=== PATIENT | female | born 1960 | race Caucasian/White ===

== ENCOUNTER → 2016-09-15 | Outpatient (CLI) | payer OTHER ==
[2016-09-15 07:51] LABS: ALBUMIN 3.7 gm/dl (3.1-4.5); ALKALINE PHOSPHATASE 163 U/L (45-117); BILIRUBIN, TOTAL 0.5 mg/dl (0.2-1.0); BUN 20 mg/dl (7-24); CARBON DIOXIDE 29 mmol/L (21-32); CHLORIDE 105 mmol/L (98-107); CHOLESTEROL 201 mg/dL (<200); EST GLOM FILT AFRICAN AMERICAN > 60 ml/min; GLUCOSE 88 mg/dL (65-99); HDL CHOLESTEROL 89 mg/dl (40-60); LDL CHOLESTEROL 101 mg/dL (9-159); POTASSIUM 4.3 mmol/L (3.5-5.1); SGOT/AST 60 IU/L (3-35); SGPT/ALT 108 U/L (12-78); SODIUM 141 mmol/L (136-145); TOTAL PROTEIN 7.6 gm/dL (6.4-8.2); TRIGLYCERIDES 57 mg/dl (<150); VLDL CHOLESTEROL 11 mg/dL (6-40)
== END | disposition home or self-care (01) ==
LOC: LAB 06:50
PROVIDERS: Family Medicine
DX: E78.00 Pure hypercholesterolemia, unspecified (principal); J32.9 Chronic sinusitis, unspecified

== ENCOUNTER → 2016-09-20 | Outpatient (CLI) | payer OTHER ==
[2016-09-21 08:08] LABS: HEPATITIS C VIRUS ANTIBODY <0.1 s/co (0.0-0.9)
== END | disposition home or self-care (01) ==
LOC: LAB 06:58
PROVIDERS: Family Medicine
DX: R79.89 Other specified abnormal findings of blood chemistry (principal); R74.8 Abnormal levels of other serum enzymes

== ENCOUNTER → 2016-10-04 | Outpatient (CLI) | payer OTHER | END | disposition home or self-care (01) | LOC: US 07:06 | DX: K76.89 Other specified diseases of liver (principal); R94.5 Abnormal results of liver function studies ==

== ENCOUNTER → 2016-11-18 | Day surgery (SDC) | payer OTHER ==
[~2016-11-18] VITALS: Ht 157.4 cm; Wt 53.5 kg
--- NOTE | ~2016-11-18 | O ---
[place], [place] OPERATIVE NOTE NAME: GISELLA SANTILLAN UNIT #: [id number] ROOM: DOCTOR: OSMIN PENNINGTON MD BIRTHDATE: [birth year] DOS: 11/18/2016 GASTROENDSCOPIC REPORT. HISTORY OF PRESENT ILLNESS: A 56-year-old patient who presented with chief complaint of history of colonic polyp, undergoing investigation. ALLERGIES: DIFLUCAN. FAMILY HISTORY: Father with colonic CA, maternal grandmother with colonic CA. PAST SURGICAL HISTORY: Tubal ligation. PAST MEDICAL HISTORY: No acute pathology under treatment. PROCEDURE: Today's procedure part of investigation is colonoscopy with piecemeal polypectomy. PREMEDICATION: Versed and Diprivan. SCOPE: Olympus folding colonoscope 10L video. REPORT: After putting the patient in the left lateral position and after application of lubricant to rectal pouch and digital examination, scope was introduced. Thereafter, under direct visualization, I advanced through the length of colon without difficulty. Base of the cecum explored, appendiceal orifice identified, and ileocecal valve was defined. Scope was gradually withdrawn from ascending, transverse, descending colon back to the rectal pouch. A sessile polypoid lesion with piecemeal polypectomy removed. The patient extubated, tolerated procedure well. IMPRESSION: Rectal polypoid lesion status post piecemeal polypectomy, tortuous colon at sigmoid colon and hepatic flexure. PLAN AND DISCUSSION: High fiber diet. ACTIVITY: Ad kemi. FOLLOWUP: Routinely with you in office, p.r.n. visit with us in [facility]. I thank you very much again for your kind referral. [place], [place] OPERATIVE NOTE NAME: GISELLA SANTILLAN UNIT #: [id number] ROOM: DOCTOR: OSMIN PENNINGTON MD BIRTHDATE: [birth year] OSMIN PENNINGTON MD CM:OPRECORD:OPERATIVE NOTE 1141 [id number] ALBA PENNINGTON MD 11/18/16 1406 interface
[2016-11-18 10:25] VITALS: BP 115/74
[2016-11-18 11:36] VITALS: BP 85/47
[2016-11-18 11:51] VITALS: BP 92/53
[2016-11-18 12:05] VITALS: BP 98/59
== END | disposition home or self-care (01) ==
LOC: SDC 11-14 12:30
DX: Z09 Encounter for follow-up examination after completed treatment for conditions other than malignant neoplasm (principal); K63.89 Other specified diseases of intestine; K62.1 Rectal polyp; Z80.9 Family history of malignant neoplasm, unspecified; Z98.51 Tubal ligation status; Z87.19 Personal history of other diseases of the digestive system

== ENCOUNTER → 2016-11-30 | Outpatient (CLI) | payer OTHER ==
[2016-11-30 08:50] LABS: ALBUMIN 3.8 gm/dl (3.1-4.5); ALKALINE PHOSPHATASE 106 U/L (45-117); BILIRUBIN, DIRECT < 0.1 mg/dL (0.0-0.2); BUN 20 mg/dl (7-24); CHLORIDE 105 mmol/L (98-107); CREATININE 0.76 mg/dL (0.55-1.02); POTASSIUM 4.2 mmol/L (3.5-5.1); SGOT/AST 26 IU/L (3-35); SGPT/ALT 37 U/L (12-78); SODIUM 143 mmol/L (136-145); TOTAL PROTEIN 7.5 gm/dL (6.4-8.2)
== END | disposition home or self-care (01) ==
LOC: LAB 07:17
DX: D18.03 Hemangioma of intra-abdominal structures (principal); R79.89 Other specified abnormal findings of blood chemistry

== ENCOUNTER → 2016-12-06 | Outpatient (CLI) | payer OTHER | END | disposition home or self-care (01) | LOC: MRI 03:13 | DX: D18.09 Hemangioma of other sites (principal) ==

== ENCOUNTER 2019-11-25 09:22 | Emergency (ER) | payer OTHER ==
[~2019-11-25] VITALS: Ht 157.4 cm; Wt 52.2 kg
[2019-11-25 10:14] LABS: BASO % 0.2 % (0.0-1.0); HEMATOCRIT 42.6 % (37.0-47.0); LYMPH # 0.6 10*3/uL (1.3-4.4); LYMPH % 4.8 % (27.0-41.0); MEAN CELL VOLUME 92.6 fl (81.0-99.0); MEAN CORPUSCULAR HGB 29.6 pg (27.0-31.0); MEAN CORPUSCULAR HGB CONC 31.9 g/dl (33.0-37.0); MEAN PLATELET VOLUME 10.1 fl (9.6-12.3); MONO # 0.8 10*3/uL (0.1-1.0); MONO % 5.9 % (3.0-9.0); NEUT # 11.6 10*3/uL (2.3-7.9); NEUT % 88.9 % (47.0-73.0); PLATELET COUNT AUTOMATED 371 10*3/uL (130-400); RED CELL DISTRI WIDTH 12.2 % (0-14.5); WHITE BLOOD COUNT 13.1 10*3/uL (4.8-10.8)
[2019-11-25 10:30] LABS: ALBUMIN 3.8 gm/dl (3.1-4.5); ALKALINE PHOSPHATASE 157 U/L (45-117); BUN 13 mg/dl (7-24); CHLORIDE 110 mmol/L (98-107); CREATININE 0.72 mg/dL (0.55-1.02); POTASSIUM 3.6 mmol/L (3.5-5.1); SGOT/AST 55 IU/L (3-35); SGPT/ALT 112 U/L (12-78); SODIUM 141 mmol/L (136-145); TOTAL PROTEIN 7.9 gm/dL (6.4-8.2)
[2019-11-25] MEDS ORDERED: LEVOFLOXACIN500 MG PO (10:50)
== END 2019-11-25 10:58 | disposition home or self-care (01) ==
LOC: ED 09:22
PROVIDERS: Emergency Medicine
DX: J01.30 Acute sphenoidal sinusitis, unspecified (principal)

== ENCOUNTER → 2019-12-06 | Outpatient (CLI) | payer OTHER ==
[~2019-12-06] MED LIST: LEVOFLOXACIN500 MG PO
[2019-12-06 08:56] LABS: HEMATOCRIT 40.3 % (37.0-47.0); MEAN CELL VOLUME 93.3 fl (81.0-99.0); MEAN CORPUSCULAR HGB 29.6 pg (27.0-31.0); MEAN CORPUSCULAR HGB CONC 31.8 g/dl (33.0-37.0); RED BLOOD COUNT 4.32 10*6/uL (4.10-5.10); RED CELL DISTRI WIDTH 12.5 % (0-14.5); WHITE BLOOD COUNT 10.5 10*3/uL (4.8-10.8)
[2019-12-06 09:28] LABS: ALBUMIN 3.5 gm/dl (3.1-4.5); ALKALINE PHOSPHATASE 213 U/L (45-117); BUN 26 mg/dl (7-24); CHLORIDE 105 mmol/L (98-107); CREATININE 0.83 mg/dL (0.55-1.02); POTASSIUM 3.7 mmol/L (3.5-5.1); SGOT/AST 17 IU/L (3-35); SGPT/ALT 59 U/L (12-78); SODIUM 142 mmol/L (136-145); TOTAL PROTEIN 7.6 gm/dL (6.4-8.2)
== END | disposition home or self-care (01) ==
LOC: LAB 08:09
PROVIDERS: ATTEND Family Medicine
DX: D72.829 Elevated white blood cell count, unspecified (principal)

== ENCOUNTER → 2020-02-28 | Outpatient (CLI) | payer OTHER, SELFPAY | END | disposition home or self-care (01) | LOC: COVID19 09:28 | PROVIDERS: ATTEND Family Medicine | DX: U07.1 COVID-19 (principal) ==